=== PATIENT | male | born 1975 | race Caucasian/White ===

== ENCOUNTER 2021-04-21 15:17 | Emergency (ER) | payer OTHER ==
[~2021-04-21] VITALS: Ht 172.7 cm; Wt 78.5 kg
[2021-04-21] MEDS ORDERED: HYDROcodone/APAP 5/325MG 1 TAB TABLET PO ONE (15:30)
[2021-04-21] MEDS ORDERED: IV NORMAL SALINE 1,000ML 1,000 ML IV ONE (15:45)
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
[2021-04-21] MEDS ORDERED: DIPHTH,PERTUSS(ACELL),TET TOX 0.5 ML DISP.SYRIN. VAX IM ONE (16:00)
[2021-04-21] MEDS ORDERED: IOHEXOL 300 MG/ML 75 ML VIAL. IV ONE (16:00)
[2021-04-21] MEDS ORDERED: IOHEXOL 300 MG/ML 75 ML VIAL. ONE (16:02)
[2021-04-21] MEDS ORDERED: CONTRAST GIVEN. MC PRN (16:15)
[2021-04-21 16:48] VITALS: BP 173/87
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
[2021-04-21] MEDS ORDERED: LIDOCAINE 1% Multi-Dose 20 ML VIAL. IJ ONE (17:30)
[2021-04-21] MEDS ORDERED: HYDR-2155 PO (18:15)
== END 2021-04-21 18:40 | disposition home or self-care (01) ==
LOC: ER 15:17
DX: S01.112A Laceration without foreign body of left eyelid and periocular area, initial encounter (principal); S81.811A Laceration without foreign body, right lower leg, initial encounter; S81.812A Laceration without foreign body, left lower leg, initial encounter; M54.59 Other low back pain; M54.6 Pain in thoracic spine; M25.551 Pain in right hip; R07.81 Pleurodynia; V89.2XXA Person injured in unspecified motor-vehicle accident, traffic, initial encounter; Y93.I9 Activity, other involving external motion; Y92.89 Other specified places as the place of occurrence of the external cause; Y99.8 Other external cause status
CPT/HCPCS: 12002; 12011; 70450; 70486; 71260; 72125; 72128; 72131; 73030; 73502; 73562; 73590; 74177; 90471; 90715; 96361; 96374; 96376; 99285; J3010; J7030; Q9967